=== PATIENT | female | born 1995 | race Caucasian/White ===

== ENCOUNTER 2016-05-08 15:12 | Emergency (ER) | payer OTHER ==
[~2016-05-08] VITALS: Ht 158.8 cm; Wt 70.7 kg
[~2016-05-08 15:12] MED LIST: ABILIFY10 MG PO; ADDERALL20 MG PO; BACTRIM,SEPT1 TABLET PO; BENTYL20 MG PO; GEODON20 MG PO; HYDROCODON-ACE1 EAC7 PO; LEXAPRO; LEXAPRO10 MG PO; LEXAPRO5 MG PO; LORTAB 5-325 M1 EACH PO; MICROGESTIN1 EAC1 PO; MOTRIN IB200 MG PO; MOTRIN800 MG PO; OXCARBAZEPINE600 MG PO; PEPCID40 MG PO; PERCOCET 5/31 TABLET PO; PRENATAL TABLE1 EAC3 PO; PROMETHAZINE HC25 M1 PO; PROZAC20 MG PO; TESSALON PERLE100 MG PO; TOPAMAX25 MG PO; TOPAMAX50 MG PO; TRILEPTAL; TRILEPTAL300 MG PO; TRILEPTAL600 MG PO; VIVANZ; VYVANSE; VYVANSE70 MG PO; ZOFRAN ODT8 MG PO; [UNRECOGNIZED DRUG - OTHER]; [UNRECOGNIZED DRUG - OTHER] PO
[2016-05-08 16:41] VITALS: BP 129/85
== END 2016-05-08 16:42 | disposition home or self-care (01) ==
LOC: EME 15:12
DX: O09.299 Supervision of pregnancy with other poor reproductive or obstetric history, unspecified trimester (principal); Z3A.00 Weeks of gestation of pregnancy not specified
CPT/HCPCS: 84702; 99281; 99284

== ENCOUNTER 2016-06-09 15:26 | Emergency (ER) | payer OTHER ==
[~2016-06-09] VITALS: Ht 157.5 cm; Wt 84.6 kg
[2016-06-09] MEDS ORDERED: PRENATAL TABLE1 EAC3 PO (15:39)
[2016-06-09] MEDS ORDERED: VITAMIN D3 (15:39)
[2016-06-09 16:01] LABS: HEMATOCRIT 35.2 % (36.0-46.0); MCH 32.4 PG (29.0-34.0); MCHC 36.9 G/DL (30.0-36.0); MCV 87.8 FL (83-99); MEAN PLAT.VOLUME 10.1 uM^3 (9.5-12.4); PLATELET COUNT 276 K/uL (156-360); RBC DIS.WIDTH-CV 11.8 % (11.8-14.6); RBC DIS.WIDTH-SD 37.1 % (39-53); RED BLOOD COUNT 4.01 M/uL (3.80-5.20)
[2016-06-09 16:05] LABS: WHITE BLOOD COUNT 9.7 K/uL (4.1-10.2)
[2016-06-09 16:10] LABS: CHLORIDE 110 mEq/L (99-109); POTASSIUM 3.6 mEq/L (3.7-5.4); SODIUM 140 mEq/L (136-147)
[2016-06-09 16:12] LABS: GLUCOSE 105 mg/dL (70-99)
[2016-06-09 16:13] LABS: ANION GAP 11 MEQ/L (2-14)
[2016-06-09 16:16] LABS: GFR ESTIMATE (CALCULATED) > 59 mL/min/
[2016-06-09 16:17] LABS: UREA NITROGEN (BUN) 9 mg/dL (9-23)
[2016-06-09 19:14] LABS: BILIRUBIN NEGATIVE; BLOOD SMALL; COLOR YELLOW ((YELLOW)); GLUCOSE (STRIP) NEGATIVE; KETONES NEGATIVE; LEUKOCYTES NEGATIVE; NITRITE NEGATIVE; PH, URINE 6.5 (5-8); PROTEIN (STRIP) NEGATIVE; SPECIFIC GRAVITY 1.025 (1.000-1.030)
[2016-06-09 19:15] LABS: ADD MIUA? YES
[2016-06-09 19:29] LABS: BACTERIA NONE SEEN /HPF; CASTS NONE SEEN /LPF; CRYSTALS NONE SEEN; EPITHELIAL CELLS RARE /HPF; MUCUS NONE SEEN /LPF; PATHOLOGICAL CAST NONE SEEN; RED BLOOD CELLS 0-5 /HPF (0-5); SMALL ROUND CELL NONE SEEN; WHITE BLOOD CELLS 0-5 /HPF (0-5); YEAST-LIKE CELL NONE SEEN
[2016-06-09] MEDS ORDERED: ZOFRAN ODT4 MG PO (19:35)
[2016-06-09 20:52] VITALS: BP 116/58
== END 2016-06-09 20:53 | disposition home or self-care (01) ==
LOC: EME 15:26
PROVIDERS: Physician Assistant
DX: O20.0 Threatened abortion (principal); E86.0 Dehydration; E87.6 Hypokalemia; Z3A.08 8 weeks gestation of pregnancy; O99.331 Smoking (tobacco) complicating pregnancy, first trimester; Z86.61 Personal history of infections of the central nervous system
CPT/HCPCS: 76801; 80048; 81003; 84702; 85027; 86850; 86900; 86901; 99281; 99284; J2788; J7030

== ENCOUNTER 2016-06-17 13:37 | Emergency (ER) | payer OTHER ==
[~2016-06-17] VITALS: Ht 157.5 cm; Wt 69.7 kg
[~2016-06-17 13:37] MED LIST changes: +VITAMIN D3; +ZOFRAN ODT4 MG PO
[2016-06-17 14:27] LABS: HEMATOCRIT 36.1 % (36.0-46.0); MCHC 36.3 G/DL (30.0-36.0); MCV 88.3 FL (83-99); PLATELET COUNT 251 K/uL (156-360); RBC DIS.WIDTH-CV 11.7 % (11.8-14.6); RED BLOOD COUNT 4.09 M/uL (3.80-5.20); WHITE BLOOD COUNT 8.9 K/uL (4.1-10.2)
[2016-06-17 14:28] LABS: ADD MIUA? YES; BILIRUBIN NEGATIVE; BLOOD LARGE; COLOR AMBER ((YELLOW)); GLUCOSE (STRIP) NEGATIVE; KETONES NEGATIVE; LEUKOCYTES MODERATE; NITRITE NEGATIVE; PROTEIN (STRIP) 100; SPECIFIC GRAVITY 1.027 (1.000-1.030); UROBILINOGEN 0.2 MG/DL (0.2-1.0)
[2016-06-17 14:36] LABS: CHLORIDE 107 mEq/L (99-109); POTASSIUM 3.6 mEq/L (3.7-5.4); SODIUM 140 mEq/L (136-147)
[2016-06-17 14:38] LABS: GLUCOSE 93 mg/dL (70-99)
[2016-06-17 14:39] LABS: ANION GAP 10 MEQ/L (2-14)
[2016-06-17 14:41] LABS: BACTERIA RARE /HPF; EPITHELIAL CELLS 4+ /HPF; MUCUS TRACE /LPF; RED BLOOD CELLS 20-30 /HPF (0-5); WHITE BLOOD CELLS 20-30 /HPF (0-5)
[2016-06-17 14:42] LABS: GFR ESTIMATE (CALCULATED) > 59 mL/min/; UREA NITROGEN (BUN) 8 mg/dL (9-23)
[2016-06-17 15:38] LABS: QUANTITATIVE HCG 87448.5 MIU/ML
[2016-06-17 17:19] VITALS: BP 100/57
== END 2016-06-17 17:28 | disposition home or self-care (01) ==
LOC: EME 13:37 → EXP 13:37
PROVIDERS: Nurse Practitioner Family
DX: O20.9 Hemorrhage in early pregnancy, unspecified (principal); O99.331 Smoking (tobacco) complicating pregnancy, first trimester; O99.341 Other mental disorders complicating pregnancy, first trimester; F17.210 Nicotine dependence, cigarettes, uncomplicated; F31.9 Bipolar disorder, unspecified; F32.9 Major depressive disorder, single episode, unspecified; F90.0 Attention-deficit hyperactivity disorder, predominantly inattentive type; Z3A.09 9 weeks gestation of pregnancy; Z86.61 Personal history of infections of the central nervous system
CPT/HCPCS: 76801; 80048; 81003; 84702; 84702 90; 85027; 99281; 99285

== ENCOUNTER 2016-07-14 06:32 | Outpatient (CLI) | payer OTHER ==
[~2016-07-14] VITALS: Ht 157.5 cm; Wt 69.1 kg
[2016-07-14 08:13] LABS: EOSINOPHIL (%) 2.1 % (0-5); EOSINOPHIL COUNT 0.2 K/uL (0-0.3); HEMATOCRIT 31.6 % (36.0-46.0); IMMATURE GRANULOCYTE (%) 0.1 % (0.0-0.7); IMMATURE GRANULOCYTE COUNT 0.1 K/uL; LYMPHOCYTE COUNT 1.7 K/uL (1.0-2.8); MCH 31.3 PG (29.0-34.0); MCHC 35.8 G/DL (30.0-36.0); MCV 87.5 FL (83-99); MEAN PLAT.VOLUME 10.3 uM^3 (9.5-12.4); MONOCYTE (%) 5.9 % (3-12); MONOCYTE COUNT 0.6 K/uL (0-0.8); NEUTROPHIL (%) 74.6 % (45-76); NEUTROPHIL COUNT 7.4 K/uL (1.8-6.4); PLATELET COUNT 243 K/uL (156-360); RBC DIS.WIDTH-CV 11.9 % (11.8-14.6); RBC DIS.WIDTH-SD 36.5 % (39-53); RED BLOOD COUNT 3.61 M/uL (3.80-5.20); WHITE BLOOD COUNT 9.9 K/uL (4.1-10.2)
[2016-07-14 08:23] LABS: CHLORIDE 109 mEq/L (99-109); POTASSIUM 3.8 mEq/L (3.7-5.4); SODIUM 138 mEq/L (136-147)
[2016-07-14 08:25] LABS: GLUCOSE 84 mg/dL (70-99)
[2016-07-14 08:27] LABS: ANION GAP 9 MEQ/L (2-14)
[2016-07-14 08:29] LABS: GFR ESTIMATE (CALCULATED) > 59 mL/min/
[2016-07-14 08:30] LABS: UREA NITROGEN (BUN) 7 mg/dL (9-23)
[2016-07-14 08:57] LABS: QUANTITATIVE HCG 45050.7 MIU/ML
[2016-07-14 09:30] LABS: ADD MIUA? YES; BILIRUBIN NEGATIVE; BLOOD LARGE; GLUCOSE (STRIP) NEGATIVE; KETONES NEGATIVE; LEUKOCYTES LARGE; NITRITE NEGATIVE; PROTEIN (STRIP) NEGATIVE; UROBILINOGEN 0.2 MG/DL (0.2-1.0)
[2016-07-14 09:37] LABS: COLOR LT.RED ((YELLOW))
[2016-07-14 09:46] LABS: BACTERIA RARE /HPF; EPITHELIAL CELLS 1+ /HPF; MUCUS TRACE /LPF; RED BLOOD CELLS TNTC /HPF (0-5); UCUL ADDED? NO; WHITE BLOOD CELLS 40-50 /HPF (0-5)
[2016-07-14] MEDS ORDERED: MACROBID100 MG PO (11:53)
[2016-07-14] MEDS ORDERED: VITAMIN D31000 UNI2 PO (12:22)
[2016-07-14] MEDS ORDERED: TYLENOL REGULA325 MG PO (12:23)
[2016-07-14 14:49] VITALS: BP 94/50
[2016-07-14 14:56] LABS: AMPHETAMINES QUANT VALUE 0 NG/ML; BARBITUATES QUANT VALUE 0 NG/ML; BENZODIAZEPINES QUANT VALUE 0 NG/ML; BENZODIAZEPINES, URINE SCREEN Negative (200 ng/mL); MARIJUANA QUANT VALUE 0 NG/ML; OPIATES QUANTITATIVE VALUE 0 NG/ML; PHENCYCLIDINE QUANT VALUE 0 NG/ML
[2016-07-15 12:16] LABS: CHLAMYDIA TRACHOMATIS NEGATIVE; NEISSERIA GONORRHOEAE NEGATIVE
[2016-07-15] MEDS ORDERED: PERCOCET 5/31 TABLET PO (18:25)
[2016-07-15] MEDS ORDERED: MOTRIN800 MG PO (18:25)
[2016-07-15] MEDS ORDERED: Methergine PO (20:18)
== END 2016-07-14 17:40 | disposition home or self-care (01) ==
LOC: EME 06:32 → LDRP-OP 06:32 → EME 12:06 → EDOF 12:06 → 2WEST 12:27 → EME 13:00 → 2WEST 14:45 → EDOF 14:45 → 2WEST 17:40 → EDSTATUS 17:57
PROVIDERS: Emergency Medicine; Obstetrics & Gynecology Obstetrics
DX: O34.32 Maternal care for cervical incompetence, second trimester (principal); Z3A.14 14 weeks gestation of pregnancy; O99.352 Diseases of the nervous system complicating pregnancy, second trimester; G43.909 Migraine, unspecified, not intractable, without status migrainosus; O99.512 Diseases of the respiratory system complicating pregnancy, second trimester; J45.909 Unspecified asthma, uncomplicated; O99.342 Other mental disorders complicating pregnancy, second trimester; F90.0 Attention-deficit hyperactivity disorder, predominantly inattentive type; F31.9 Bipolar disorder, unspecified; O99.332 Smoking (tobacco) complicating pregnancy, second trimester; F17.200 Nicotine dependence, unspecified, uncomplicated
CPT/HCPCS: 76801; 80048; 80306 90; 81003; 83030; 84702; 85025; 86850; 86900; 86901; 87210; 87480; 87491; 87510; 87591; 87660; 99281; 99285; G0378; J2790; J7120

== ENCOUNTER 2016-07-15 13:01 | Outpatient (CLI) | payer OTHER ==
[~2016-07-15] VITALS: Ht 157.5 cm; Wt 68.9 kg
[2016-07-15] VITALS (9 sets, daily range): BP systolic 96–123; BP diastolic 52–65
[~2016-07-15 13:01] MED LIST changes: +MACROBID100 MG PO; +TYLENOL REGULA325 MG PO; +VITAMIN D31000 UNI2 PO
[2016-07-15 14:14] LABS: EOSINOPHIL (%) 0.4 % (0-5); EOSINOPHIL COUNT 0.1 K/uL (0-0.3); HEMATOCRIT 32.2 % (36.0-46.0); IMMATURE GRANULOCYTE (%) 0.3 % (0.0-0.7); INSTRUMENT ABS NEUTROPHIL CT 11.5 K/uL; LYMPHOCYTE COUNT 1.3 K/uL (1.0-2.8); MCH 31.5 PG (29.0-34.0); MCHC 35.4 G/DL (30.0-36.0); MEAN PLAT.VOLUME 10.4 uM^3 (9.5-12.4); MONOCYTE (%) 4.3 % (3-12); MONOCYTE COUNT 0.6 K/uL (0-0.8); NEUTROPHIL (%) 85.1 % (45-76); NEUTROPHIL COUNT 11.5 K/uL (1.8-6.4); PLATELET COUNT 272 K/uL (156-360); RBC DIS.WIDTH-CV 11.9 % (11.8-14.6); RBC DIS.WIDTH-SD 38.5 % (39-53); RED BLOOD COUNT 3.62 M/uL (3.80-5.20)
[2016-07-15 14:24] LABS: WHITE BLOOD COUNT 13.6 K/uL (4.1-10.2)
[2016-07-15 14:33] LABS: ALKALINE PHOSPHATASE 52 IU/L (3-129); ANION GAP 8 MEQ/L (2-14); CHLORIDE 105 MEQ/L (99-109); GFR ESTIMATE (CALCULATED) > 59 mL/min/; GLUCOSE 83 mg/dL (70-99); POTASSIUM 3.7 MEQ/L (3.7-5.4); SAMPLE HEMOLYSIS CHECK 0; SAMPLE ICTERIC CHECK 0; SAMPLE LIPEMIA CHECK 0; SODIUM 135 MEQ/L (136-147); TOTAL BILIRUBIN 0.4 MG/DL (0.0-1.0); UREA NITROGEN (BUN) 7 mg/dL (9-23)
[2016-07-15 14:43] LABS: PROTHROMBIN TIME 10.2 (9.2-11.2); PTT 35.5 (25-32)
[2016-07-15 14:53] LABS: FIBRINOGEN 500 MG/DL (160-450)
[2016-07-15 15:02] LABS: Estimated Average Glucose 88 mg/dL (70-123); HEMOGLOBIN A1c (GLYCOHEMOGLOB) 4.7 % HGB (Below 5.7)
[2016-07-15] MEDS ORDERED: MOTRIN800 MG PO (18:25)
[2016-07-15] MEDS ORDERED: PERCOCET 5/31 TABLET PO (18:25)
[2016-07-15] MEDS ORDERED: Methergine PO (20:18)
[2016-07-15 22:38] LABS: CANDIDA DNA PROBE NEGATIVE; GARDNERELLA DNA PROBE NEGATIVE; INTERNAL CONTROL VALID? YES
[2016-07-15 23:22] LABS: ADD MIUA? YES; BILIRUBIN NEGATIVE; BLOOD LARGE; COLOR YELLOW ((YELLOW)); GLUCOSE (STRIP) NEGATIVE; KETONES 80; LEUKOCYTES TRACE; NITRITE NEGATIVE; PROTEIN (STRIP) 30; SPECIFIC GRAVITY 1.024 (1.000-1.030)
[2016-07-15 23:54] LABS: RED BLOOD CELLS TNTC /HPF (0-5)
[2016-07-15 23:55] LABS: EPITHELIAL CELLS 1+ /HPF; MUCUS RARE /LPF; WHITE BLOOD CELLS 0-5 /HPF (0-5)
[2016-07-15 23:56] LABS: BACTERIA 2+ /HPF; UCUL ADDED? NO
[2016-07-16 00:11] LABS: AMPHETAMINES QUANT VALUE 0 NG/ML; BARBITUATES QUANT VALUE 0 NG/ML; BENZODIAZEPINES QUANT VALUE 0 NG/ML; BENZODIAZEPINES, URINE SCREEN Negative (200 ng/mL); MARIJUANA QUANT VALUE 0 NG/ML; PHENCYCLIDINE QUANT VALUE 0 NG/ML
[2016-07-16 00:24] LABS: EOSINOPHIL (%) 0.1 % (0-5); HEMATOCRIT 28.6 % (36.0-46.0); IMMATURE GRANULOCYTE (%) 0.5 % (0.0-0.7); IMMATURE GRANULOCYTE COUNT 0.1 K/uL; INSTRUMENT ABS NEUTROPHIL CT 10.2 K/uL; LYMPHOCYTE COUNT 0.9 K/uL (1.0-2.8); MCH 31.8 PG (29.0-34.0); MCHC 35.7 G/DL (30.0-36.0); MCV 89.1 FL (83-99); MEAN PLAT.VOLUME 10.3 uM^3 (9.5-12.4); MONOCYTE (%) 1.3 % (3-12); MONOCYTE COUNT 0.2 K/uL (0-0.8); NEUTROPHIL (%) 90.2 % (45-76); NEUTROPHIL COUNT 10.2 K/uL (1.8-6.4); PLATELET COUNT 231 K/uL (156-360); RBC DIS.WIDTH-CV 11.7 % (11.8-14.6); RBC DIS.WIDTH-SD 37.7 % (39-53); RED BLOOD COUNT 3.21 M/uL (3.80-5.20); WHITE BLOOD COUNT 11.3 K/uL (4.1-10.2)
== END 2016-07-16 01:20 | disposition home or self-care (01) ==
LOC: LDRP-OP 13:01 → 2WEST 13:02
PROVIDERS: Obstetrics & Gynecology
PROC: 10D17ZZ Extraction of Products of Conception, Retained, Via Natural or Artificial Opening (ICD-10-PCS; principal; 2016-07-15)
DX: O03.4 Incomplete spontaneous abortion without complication (principal); Z3A.14 14 weeks gestation of pregnancy; O34.31 Maternal care for cervical incompetence, first trimester; O99.331 Smoking (tobacco) complicating pregnancy, first trimester; F17.200 Nicotine dependence, unspecified, uncomplicated
CPT/HCPCS: 76815; 80053; 80306 90; 81003; 83036; 84443; 85025; 85384; 85610; 85730; 86850; 86870; 86900; 86901; 86905; 86920; 87086; 87480; 87510; 87660; 88305; C1755; G0378; J0595; J1170; J1885; J2175; J2210; J2590; J3010; J7120

== ENCOUNTER 2017-01-24 00:58 | Emergency (ER) | payer OTHER ==
[~2017-01-24] VITALS: Ht 157.5 cm; Wt 67.4 kg
[~2017-01-24 00:58] MED LIST changes: +Methergine PO
[2017-01-24 01:33] LABS: HEMATOCRIT 39.3 % (36.0-46.0); MCH 31.8 PG (29.0-34.0); MCHC 35.1 G/DL (30.0-36.0); MCV 90.6 FL (83-99); MEAN PLAT.VOLUME 10.1 uM^3 (9.5-12.4); PLATELET COUNT 285 K/uL (156-360); RBC DIS.WIDTH-CV 11.6 % (11.8-14.6); RBC DIS.WIDTH-SD 38.3 % (39-53); RED BLOOD COUNT 4.34 M/uL (3.80-5.20); WHITE BLOOD COUNT 9.2 K/uL (4.1-10.2)
[2017-01-24 01:34] LABS: ADD MIUA? YES; BILIRUBIN NEGATIVE; BLOOD NEGATIVE; COLOR AMBER ((YELLOW)); GLUCOSE (STRIP) NEGATIVE; KETONES NEGATIVE; LEUKOCYTES TRACE; NITRITE NEGATIVE; PROTEIN (STRIP) 30
[2017-01-24 01:41] LABS: CHLORIDE 110 mEq/L (99-109); POTASSIUM 3.5 mEq/L (3.7-5.4); SODIUM 143 mEq/L (136-147)
[2017-01-24 01:43] LABS: GLUCOSE 101 mg/dL (70-99)
[2017-01-24 01:44] LABS: ANION GAP 12 MEQ/L (2-14)
[2017-01-24 01:44] LABS: BACTERIA NONE SEEN /HPF; EPITHELIAL CELLS 2+ /HPF; MUCUS TRACE /LPF; RED BLOOD CELLS 0-5 /HPF (0-5); UCUL ADDED? YES
[2017-01-24 01:45] LABS: TOTAL BILIRUBIN 0.3 mg/dL (0.0-1.0)
[2017-01-24 01:47] LABS: ALKALINE PHOSPHATASE 48 IU/L (3-129); GFR ESTIMATE (CALCULATED) > 59 mL/min/
[2017-01-24 01:48] LABS: UREA NITROGEN (BUN) 10 mg/dL (9-23)
[2017-01-24 01:55] LABS: QUANTITATIVE HCG < 4.0 MIU/ML
[2017-01-24] MEDS ORDERED: ZANTAC150 MG PO (04:02)
[2017-01-24] MEDS ORDERED: ZOFRAN ODT4 MG PO (04:02)
[2017-01-24 04:14] VITALS: BP 137/70
== END 2017-01-24 04:15 | disposition home or self-care (01) ==
LOC: EME 00:58
DX: R11.2 Nausea with vomiting, unspecified (principal); J45.909 Unspecified asthma, uncomplicated; Z86.61 Personal history of infections of the central nervous system; F17.200 Nicotine dependence, unspecified, uncomplicated
CPT/HCPCS: 80053; 81003; 84702; 85027; 87086; 99281; 99284